=== PATIENT | female | born 1990 | race Caucasian/White ===

== ENCOUNTER 2016-05-29 19:58 | Emergency (ER) | payer BC ==
[~2016-05-29] VITALS: Ht 170.2 cm; Wt 90.9 kg
[~2016-05-29 19:58] MED LIST: Augmentin PO; Zantac PO
[2016-05-29 21:00] LABS: MCH 30.8 PG (29.0-34.0); MCV 90.5 FL (83-99); MEAN PLAT.VOLUME 9.7 uM^3 (9.5-12.4); PLATELET COUNT 308 K/uL (156-360); RBC DIS.WIDTH-CV 11.9 % (11.8-14.6); RBC DIS.WIDTH-SD 39.3 % (39-53); RED BLOOD COUNT 4.42 M/uL (3.80-5.20); WHITE BLOOD COUNT 10.5 K/uL (4.1-10.2)
[2016-05-29 21:09] LABS: CHLORIDE 107 mEq/L (99-109); POTASSIUM 3.5 mEq/L (3.7-5.4); SODIUM 141 mEq/L (136-147)
[2016-05-29 21:12] LABS: GLUCOSE 103 mg/dL (70-99)
[2016-05-29 21:13] LABS: ANION GAP 11 MEQ/L (2-14)
[2016-05-29 21:15] LABS: ALKALINE PHOSPHATASE 239 IU/L (3-129); GFR ESTIMATE (CALCULATED) > 59 mL/min/
[2016-05-29 21:16] LABS: UREA NITROGEN (BUN) 14 mg/dL (9-23)
[2016-05-29 21:25] LABS: QUANTITATIVE HCG < 4.0 MIU/ML
[2016-05-29 21:55] LABS: ADD MIUA? YES; BILIRUBIN NEGATIVE; BLOOD SMALL; COLOR YELLOW ((YELLOW)); GLUCOSE (STRIP) NEGATIVE; KETONES NEGATIVE; LEUKOCYTES TRACE; NITRITE NEGATIVE; PROTEIN (STRIP) NEGATIVE; SPECIFIC GRAVITY 1.012 (1.000-1.030)
[2016-05-29 22:06] LABS: BACTERIA NONE SEEN /HPF; EPITHELIAL CELLS 2+ /HPF; MUCUS TRACE /LPF; RED BLOOD CELLS 0-5 /HPF (0-5); UCUL ADDED? NO; WHITE BLOOD CELLS 0-5 /HPF (0-5)
[2016-05-30 02:27] VITALS: BP 131/76
== END 2016-05-30 02:29 | disposition designated cancer center or children's hospital, planned readmission (85) ==
LOC: EME 19:58
DX: K80.70 Calculus of gallbladder and bile duct without cholecystitis without obstruction (principal)
CPT/HCPCS: 76705; 80053; 81003; 84702; 85027; 99281; 99285; J7030

== ENCOUNTER 2016-07-28 12:11 | Emergency (ER) | payer BC ==
[~2016-07-28] VITALS: Ht 170.2 cm; Wt 89.0 kg
[2016-07-28 13:12] LABS: HEMATOCRIT 37.8 % (36.0-46.0); MCH 30.6 PG (29.0-34.0); MCHC 34.1 G/DL (30.0-36.0); MCV 89.8 FL (83-99); MEAN PLAT.VOLUME 9.2 uM^3 (9.5-12.4); PLATELET COUNT 265 K/uL (156-360); RBC DIS.WIDTH-CV 11.9 % (11.8-14.6); RBC DIS.WIDTH-SD 38.5 % (39-53); RED BLOOD COUNT 4.21 M/uL (3.80-5.20); WHITE BLOOD COUNT 11.1 K/uL (4.1-10.2)
[2016-07-28 13:20] LABS: CHLORIDE 101 mEq/L (99-109); POTASSIUM 3.6 mEq/L (3.7-5.4); SODIUM 135 mEq/L (136-147)
[2016-07-28 13:22] LABS: GLUCOSE 99 mg/dL (70-99)
[2016-07-28 13:23] LABS: ADD MIUA? YES; BILIRUBIN NEGATIVE; BLOOD SMALL; COLOR AMBER ((YELLOW)); GLUCOSE (STRIP) NEGATIVE; KETONES 20; LEUKOCYTES MODERATE; NITRITE POSITIVE; PROTEIN (STRIP) 30; SPECIFIC GRAVITY 1.016 (1.000-1.030)
[2016-07-28 13:24] LABS: ANION GAP 12 MEQ/L (2-14); TOTAL BILIRUBIN 2.1 mg/dL (0.0-1.0)
[2016-07-28 13:26] LABS: ALKALINE PHOSPHATASE 101 IU/L (3-129); GFR ESTIMATE (CALCULATED) > 59 mL/min/
[2016-07-28 13:27] LABS: UREA NITROGEN (BUN) 9 mg/dL (9-23)
[2016-07-28 13:29] LABS: LIPASE 20 U/L (1.0-51.0)
[2016-07-28 13:37] LABS: QUANTITATIVE HCG < 4.0 MIU/ML
[2016-07-28 13:37] LABS: BACTERIA 2+ /HPF; EPITHELIAL CELLS 2+ /HPF; HYALINE CASTS 0-5 /LPF; MUCUS 3+ /LPF; UCUL ADDED? YES; WHITE BLOOD CELLS TNTC /HPF (0-5)
[2016-07-28] MEDS ORDERED: NAPROSYN500 MG PO (13:45)
[2016-07-28] MEDS ORDERED: KEFLEX500 MG PO (13:45)
[2016-07-28] MEDS ORDERED: ZOFRAN ODT4 MG PO (13:45)
[2016-07-28 14:00] VITALS: BP 115/57
== END 2016-07-28 14:00 | disposition home or self-care (01) ==
LOC: EME 12:11
PROVIDERS: Nurse Practitioner Family
DX: N39.0 Urinary tract infection, site not specified (principal); R50.9 Fever, unspecified; R11.2 Nausea with vomiting, unspecified
CPT/HCPCS: 80053; 81003; 83690; 84702; 85027; 87077; 87086; 87186; 99281; 99284; J1885; J2765; J7030